=== PATIENT | female | born 1940 | race Caucasian/White ===

== ENCOUNTER 2021-09-10 15:11 | Emergency (ER) | payer MEDICARE, BC ==
[~2021-09-10] VITALS: Ht 157.5 cm; Wt 69.9 kg
[2021-09-10] MEDS ORDERED: OMEP40CA21 PO (15:39)
[2021-09-10] MEDS ORDERED: ROSU20TA2 PO (15:39)
[2021-09-10] MEDS ORDERED: AMOX-430 PO (15:39)
[2021-09-10] MEDS ORDERED: LEVO25TA7 PO (15:39)
[2021-09-10 15:46] LABS: BASOPHILS % (AUTO) 0.3 % (0.0-2.0); EOSINOPHILS % (AUTO) 0.4 % (0.0-6.0); HEMATOCRIT 44 % (33-45); LYMPHOCYTES # (AUTO) 1.2 K/uL (0.8-4.8); LYMPHOCYTES % (AUTO) 28.7 % (20.0-44.0); MEAN CORPUSCULAR HGB CONC 34 g/dl (31.0-36.0); MEAN CORPUSCULAR VOLUME 94 fL (82-100); MONOCYTES # (AUTO) 0.2 K/uL (0.1-1.30); MONOCYTES % (AUTO) 5.3 % (2.0-12.0); NEUTROPHILS # (AUTO) 2.8 K/uL (1.8-8.9); NEUTROPHILS % (AUTO) 65.3 % (43.0-81.0); PLATELET COUNT (AUTO) 256 K/uL (150-450); RED BLOOD CELL COUNT(AUTO) 4.63 MIL/uL (4.0-5.2); WHITE BLOOD COUNT (AUTO) 4.3 K/uL (4.3-11.0)
[2021-09-10 15:57] LABS: CALCIUM, SERUM 8.8 mg/dL (8.5-10.1); POTASSIUM 3.5 mmol/L (3.5-5.1)
[2021-09-10] MEDS ORDERED: methylPREDNISolone SOD SUCC 125 MG/2ML VIAL ONE (16:30)
[2021-09-10] MEDS ORDERED: diphenhydrAMINE HCL 50 MG/ML VIAL ONE (16:30)
[2021-09-10] MEDS ORDERED: diphenhydrAMINE HCL 50 MG/ML VIAL IV ONE (16:30)
[2021-09-10] MEDS ORDERED: methylPREDNISolone SOD SUCC 125 MG/2ML VIAL IV ONE (16:30)
[2021-09-10] MEDS ORDERED: FAMOTIDINE/PF INJ 20 MG/2 ML VIAL IV ONE ×2 (16:30)
[2021-09-10] MEDS ORDERED: PRED50TA PO (17:29)
[2021-09-10] MEDS ORDERED: DIPH25CA83 PO (17:29)
[2021-09-10] MEDS ORDERED: FAMO-131 PO (17:29)
[2021-09-10 18:44] VITALS: BP 115/70
== END 2021-09-10 18:10 | disposition home or self-care (01) ==
LOC: ER 15:11
DX: U07.1 COVID-19 (principal); T36.0X5A Adverse effect of penicillins, initial encounter; Y92.89 Other specified places as the place of occurrence of the external cause; J32.9 Chronic sinusitis, unspecified; K22.0 Achalasia of cardia; Z91.041 Radiographic dye allergy status
CPT/HCPCS: 36415; 71045; 80048; 85025; 85730; 87426; 93005; 96374; 96375; 99285; J1200; J2930; J3490; C9803